=== PATIENT | female | born 1980 | race Two or more races ===

== ENCOUNTER → 2021-07-12 | Outpatient (CLI) | payer BC | END | disposition home or self-care (01) | LOC: LAB 15:29 | PROVIDERS: ATTEND Nurse Practitioner Family | DX: Z20.822 Contact with and (suspected) exposure to COVID-19 (principal) | CPT/HCPCS: C9803; U0003 ==

== ENCOUNTER 2022-07-31 06:48 | Emergency (ER) | payer BC ==
[~2022-07-31] VITALS: Ht 162.6 cm; Wt 61.2 kg
[2022-07-31] MEDS ORDERED: CEPH-510 PO (06:52)
[2022-07-31 07:22] VITALS: BP 116/88
== END 2022-07-31 06:58 | disposition home or self-care (01) ==
LOC: EEVIPCON 06:48 → ER 06:48
DX: S80.861A Insect bite (nonvenomous), right lower leg, initial encounter (principal); L03.115 Cellulitis of right lower limb; W57.XXXA Bitten or stung by nonvenomous insect and other nonvenomous arthropods, initial encounter; Y93.89 Activity, other specified; Y92.89 Other specified places as the place of occurrence of the external cause; Y99.8 Other external cause status

== ENCOUNTER 2023-09-15 05:47 | Emergency (ER) | payer BC, OTHER ==
[~2023-09-15] VITALS: Ht 162.6 cm; Wt 63.0 kg
[~2023-09-15 05:47] MED LIST: CEPH-510 PO; IBUP-1456 PO; METH-1181 PO
[2023-09-15 06:55] LABS: COVID19 ANTIGEN SOFIA FIA POSITIVE (NEGATIVE)
[2023-09-15 06:56] LABS: Rapid Influenza A Negative (Negative); Rapid Influenza B Negative (Negative)
[2023-09-15 07:26] VITALS: BP 116/95; PULSE 88; RESP 18; TEMP 97.9; O2SAT 98
[2023-09-15] MEDS ORDERED: ALBUAER3 IN (07:31)
[2023-09-15] MEDS ORDERED: PRED20TA2 PO (07:31)
[2023-09-15] MEDS ORDERED: DEXT1SYP9 PO (07:31)
== END 2023-09-15 07:59 | disposition home or self-care (01) ==
LOC: EEVIPCON 05:47 → ER 05:47
DX: U07.1 COVID-19 (principal); J20.9 Acute bronchitis, unspecified; Z98.890 Other specified postprocedural states; Z20.822 Contact with and (suspected) exposure to COVID-19
CPT/HCPCS: 36415; 87426; 87804

== ENCOUNTER → 2023-12-11 | Outpatient (CLI) | payer BC ==
[~2023-12-11] MED LIST changes: +ALBUAER3 IN; +CEPH500C PO; +DEXT1SYP9 PO; +PRED20TA2 PO
[2023-12-11 06:55] LABS: Alanine Aminotransferase 13 U/L (7-40); Albumin 4.3 g/dL (3.2-4.8); Alkaline Phosphatase 71 U/L (46-116); Anion Gap 7 (5-15); Aspartate Aminotransferase 17 U/L (13-40); BUN/Creatinine Ratio 14.1 (10.0-20.0); Blood Urea Nitrogen 9 mg/dL (9-23); Carbon Dioxide 26 mmol/L (20-30); Chloride 106 mmol/L (98-107); Cholesterol 140 mg/dL (< 200); Glucose 84 mg/dL (74-106); LDL Cholesterol 72 mg/dL (< 100); Potassium 3.8 mmol/L (3.5-5.1); Sodium 139 mmol/L (136-145); Triglycerides 178 mg/dL (< 150)
[2023-12-11 06:56] LABS: Bilirubin, Total 0.4 mg/dL (0.2-1.0); HDL Cholesterol 48 mg/dL (40-59); Total Protein 7.4 g/dL (5.7-8.2)
[2023-12-11 07:04] LABS: Basophils # (auto) 0 10 ^3/uL (0-0.2); Basophils % (auto) 0.2 % (0.0-2.0); Eosinophils # (auto) 0.3 10 ^3/uL (0-0.8); Eosinophils % (auto) 4.2 % (0.0-7.0); Hematocrit 37.2 % (36.0-46.0); Hemoglobin 12.2 g/dL (12.2-16.2); Lymphocytes # (auto) 1.7 10 ^3/uL (0.4-5.4); Lymphocytes % (auto) 25.3 % (10.0-50.0); Mean Corpuscular Hemoglobin 30.5 pg (28.0-32.0); Mean Corpuscular Hgb Conc. 32.8 g/dL (32.0-36.0); Mean Corpuscular Volume 92.8 fL (80.0-100.0); Monocytes # (auto) 0.4 10 ^3/uL (0-1.3); Monocytes % (auto) 6.7 % (0.0-12.0); Neutrophils # (auto) 4.2 10 ^3/uL (1.6-8.6); Neutrophils % (auto) 63.6 % (37.0-80.0); Nucleated Red Blood Cells % 0.1 %; Red Blood Cells 4.01 10^6/uL (4.0-5.20); White Blood Cell 6.6 10^3/uL (4.4-10.8)
== END | disposition home or self-care (01) ==
LOC: LAB 06:27
PROVIDERS: ATTEND Internal Medicine
DX: Z00.00 Encounter for general adult medical examination without abnormal findings (principal); M06.9 Rheumatoid arthritis, unspecified
CPT/HCPCS: 80053; 80061; 83036; 84443

== ENCOUNTER → 2024-03-30 | Outpatient (CLI) | payer BC ==
[~2024-03-30] MED LIST changes: -ALBUAER3 IN; -CEPH-510 PO; -DEXT1SYP9 PO; +DOCU-265 PO; +IBUP-1455 PO; -IBUP-1456 PO; -METH-1181 PO; +METH2.5T PO; +PERCOT PO; +PRED2.5T4 PO; -PRED20TA2 PO
[2024-03-30 08:43] LABS: Albumin 4.2 g/dL (3.2-4.8); Alkaline Phosphatase 74 U/L (46-116); Aspartate Aminotransferase 16 U/L (13-40); LDL Cholesterol 91 mg/dL (< 100); Triglycerides 146 mg/dL (< 150)
[2024-03-30 08:44] LABS: Bilirubin, Direct < 0.1 mg/dL (<0.3); Bilirubin, Total 0.3 mg/dL (0.2-1.0); Cholesterol 149 mg/dL (< 200); HDL Cholesterol 38 mg/dL (40-59); Total Protein 7.5 g/dL (5.7-8.2)
[2024-03-30 08:50] LABS: Alanine Aminotransferase < 9 U/L (7-40)
[2024-03-30 08:52] LABS: Erythrocyte Sedimentation Rate 25 mm/hr (0-20)
== END | disposition home or self-care (01) ==
LOC: LAB 07:54
PROVIDERS: ATTEND Internal Medicine
DX: Z00.00 Encounter for general adult medical examination without abnormal findings (principal); M06.9 Rheumatoid arthritis, unspecified
CPT/HCPCS: 36415; 80061; 80076; 85652

== ENCOUNTER 2024-05-06 16:26 | Emergency (ER) | payer BC ==
[~2024-05-06] VITALS: Ht 162.6 cm; Wt 71.2 kg
[2024-05-06] MEDS ORDERED: METH4PAK PO (17:45)
[2024-05-06] MEDS: methylPREDNISolone SOD SUCC 125 MG/2 ML VL IM ONE (17:54)
[2024-05-06] MEDS: EPINEPHrine HCL 1 MG/1 ML AMP SC ONE (17:54)
[2024-05-06 17:55] VITALS: BP 133/89; PULSE 108; RESP 16; TEMP 98.8; O2SAT 96
== END 2024-05-06 18:08 | disposition home or self-care (01) ==
LOC: ER 16:26
DX: T78.3XXA Angioneurotic edema, initial encounter (principal); M19.90 Unspecified osteoarthritis, unspecified site; Z98.890 Other specified postprocedural states; Z88.8 Allergy status to other drugs, medicaments and biological substances; Z91.013 Allergy to seafood; Z79.899 Other long term (current) drug therapy; Y92.89 Other specified places as the place of occurrence of the external cause
CPT/HCPCS: 96372; 99284; J0171; J2919

== ENCOUNTER 2024-05-15 06:41 | Emergency (ER) | payer BC, OTHER ==
[~2024-05-15] VITALS: Ht 162.6 cm; Wt 70.6 kg
[~2024-05-15 06:41] MED LIST changes: +METH4PAK PO
[2024-05-15 07:33] VITALS: BP 105/97; PULSE 101; RESP 20; TEMP 97.6; O2SAT 99
[2024-05-15 08:58] LABS: Hepatitis B Surface Antibody Positive (Negative)
[2024-05-15 09:10] LABS: Hepatitis B Surface Antigen Negative (Negative)
== END 2024-05-15 07:38 | disposition home or self-care (01) ==
LOC: ER 06:41
DX: S59.811A Other specified injuries right forearm, initial encounter (principal); M19.90 Unspecified osteoarthritis, unspecified site; Z88.8 Allergy status to other drugs, medicaments and biological substances; Z91.018 Allergy to other foods; Z79.899 Other long term (current) drug therapy; W46.0XXA Contact with hypodermic needle, initial encounter; Y93.89 Activity, other specified; Y92.89 Other specified places as the place of occurrence of the external cause; Y99.8 Other external cause status
CPT/HCPCS: 36415; 86703; 86706; 86803; 87340

== ENCOUNTER → 2024-06-14 | Outpatient (CLI) | payer BC ==
[2024-06-14 12:43] LABS: Basophils # (auto) 0 10 ^3/uL (0-0.2); Basophils % (auto) 0.1 % (0.0-2.0); Eosinophils # (auto) 0.2 10 ^3/uL (0-0.8); Eosinophils % (auto) 3.4 % (0.0-7.0); Hematocrit 37.5 % (36.0-46.0); Hemoglobin 12.5 g/dL (12.2-16.2); Lymphocytes # (auto) 1.5 10 ^3/uL (0.4-5.4); Lymphocytes % (auto) 24.3 % (10.0-50.0); Mean Corpuscular Hgb Conc. 33.3 g/dL (32.0-36.0); Monocytes # (auto) 0.4 10 ^3/uL (0-1.3); Monocytes % (auto) 5.7 % (0.0-12.0); Neutrophils # (auto) 4.2 10 ^3/uL (1.6-8.6); Neutrophils % (auto) 66.5 % (37.0-80.0); Red Blood Cells 4.17 10^6/uL (4.0-5.20); Red Cell Distribution Width 14.2 % (11.8-14.3); White Blood Cell 6.3 10^3/uL (4.4-10.8)
[2024-06-14 13:14] LABS: Erythrocyte Sedimentation Rate 15 mm/hr (0-20)
[2024-06-14 13:42] LABS: Alanine Aminotransferase 13 U/L (7-40); Albumin 4.1 g/dL (3.2-4.8); Alkaline Phosphatase 76 U/L (46-116); Anion Gap 7 (5-15); Aspartate Aminotransferase 13 U/L (13-40); BUN/Creatinine Ratio 10.7 (10.0-20.0); Blood Urea Nitrogen 6 mg/dL (9-23); Calcium 9.1 mg/dL (8.7-10.4); Carbon Dioxide 24 mmol/L (20-30); Chloride 108 mmol/L (98-107); Glucose 83 mg/dL (74-106); Potassium 3.9 mmol/L (3.5-5.1); Sodium 139 mmol/L (136-145)
[2024-06-14 13:43] LABS: Bilirubin, Total 0.4 mg/dL (0.2-1.0); Total Protein 6.9 g/dL (5.7-8.2)
[2024-06-14 13:51] LABS: CRP High Sensitivity 3.85 mg/dL (<1.0)
[2024-06-15 13:07] LABS: Anti-Nuclear Antibody Direct Negative (Negative)
[2024-06-16 12:06] LABS: QuantiFERON-TB Gold Plus Negative (Negative)
== END | disposition home or self-care (01) ==
LOC: LAB 12:25
PROVIDERS: ATTEND Internal Medicine Rheumatology
DX: Z11.1 Encounter for screening for respiratory tuberculosis (principal); M05.79 Rheumatoid arthritis with rheumatoid factor of multiple sites without organ or systems involvement; R53.83 Other fatigue; Z79.899 Other long term (current) drug therapy
CPT/HCPCS: 36415; 80053; 85025; 85652; 86038; 86141; 87517; 87902

== ENCOUNTER → 2024-10-06 | Outpatient (CLI) | payer BC ==
[2024-10-06 10:36] LABS: Basophils # (auto) 0 10 ^3/uL (0-0.2); Basophils % (auto) 0.5 % (0.0-2.0); Eosinophils # (auto) 0.1 10 ^3/uL (0-0.8); Hematocrit 39.5 % (36.0-46.0); Hemoglobin 13.4 g/dL (12.2-16.2); Lymphocytes # (auto) 1.7 10 ^3/uL (0.4-5.4); Lymphocytes % (auto) 23.4 % (10.0-50.0); Mean Corpuscular Hemoglobin 31.4 pg (28.0-32.0); Mean Corpuscular Hgb Conc. 33.8 g/dL (32.0-36.0); Mean Corpuscular Volume 92.8 fL (80.0-100.0); Monocytes # (auto) 0.5 10 ^3/uL (0-1.3); Monocytes % (auto) 6.4 % (0.0-12.0); Neutrophils % (auto) 68.7 % (37.0-80.0); Nucleated Red Blood Cells % 0.1 %; Platelet Count (auto) 336 10^3/uL (140-450); Red Blood Cells 4.26 10^6/uL (4.0-5.20); White Blood Cell 7.3 10^3/uL (4.4-10.8)
[2024-10-06 11:06] LABS: Erythrocyte Sedimentation Rate 14 mm/hr (0-20)
[2024-10-06 11:28] LABS: Alanine Aminotransferase 14 U/L (7-40); Alkaline Phosphatase 80 U/L (46-116); Anion Gap 6 (5-15); Aspartate Aminotransferase 16 U/L (13-40); BUN/Creatinine Ratio 15.2 (10.0-20.0); Blood Urea Nitrogen 10 mg/dL (9-23); CRP High Sensitivity 0.88 mg/dL (<1.0); Carbon Dioxide 27 mmol/L (20-31); Chloride 106 mmol/L (98-107); Glucose 99 mg/dL (74-106); Potassium 4.1 mmol/L (3.5-5.1); Sodium 139 mmol/L (136-145)
[2024-10-06 11:29] LABS: Albumin 4.5 g/dL (3.2-4.8)
[2024-10-06 11:30] LABS: Bilirubin, Total 0.3 mg/dL (0.2-1.0); Total Protein 7.7 g/dL (5.7-8.2)
== END | disposition home or self-care (01) ==
LOC: LAB 10:14
PROVIDERS: ATTEND Internal Medicine Rheumatology
DX: Z11.1 Encounter for screening for respiratory tuberculosis (principal); M05.79 Rheumatoid arthritis with rheumatoid factor of multiple sites without organ or systems involvement; R53.83 Other fatigue; Z79.899 Other long term (current) drug therapy
CPT/HCPCS: 36415; 80053; 85025; 85652; 86141